=== PATIENT | female | born 1950 | race Caucasian/White ===

== ENCOUNTER → 2016-08-20 | Day surgery (SDC) | payer OTHER, MEDICARE ==
[~2016-08-20] VITALS: Ht 162.6 cm; Wt 86.2 kg
--- NOTE | 2016-08-20 14:25 | Operative Report ---
Operative/Inv Procedure Report Surgery Date: 08/20/16 Name of Procedure: Bronchoscopy. 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 The endobronchial anatomy was normal. There were no lesions or bronchial abnormalities. The patient's neck and chest were then prepped and draped in a sterile fashion. An incision was made above the sternal notch and carried down to pretracheal fascia. Dissection was done just anterior to the trachea into the soft tissue behind the sternal notch. The mediastinal adenopathy that been identified on CT scan was encountered directly. There was first a cervical lymph node area above the sternum that was removed and sent for permanent histology. Further dissection below the strap muscles allowed complete excision of the superior mediastinal lymph node that was found at the aortic arch just adjacent to the brachiocephalic artery. It was removed in its entirety and sent to pathology. Intraoperative frozen section disclosed some form of lymphoproliferative process and further pathology is pending. Hemostasis was achieved with electrocautery. The wound was closed anatomically with running Vicryl suture followed by running Vicryl subcuticular suture. The wound was dressed with dry sterile dressing. The patient tolerated the procedure well and was brought to recovery room awake and extubated in stable condition. CC: MARIN MURO,ADRIANNE Rasmussen; BHAVNA MURO,JACKY; Magdi PEARL MD
--- NOTE | 2016-08-20 15:13 | RADIOLOGY REPORT ---
EXAMINATION: CHEST 1 VIEW CLINICAL INFORMATION: Status post mediastinoscopy and bronchoscopy. COMPARISON: 08/17/2016. TECHNIQUE: An AP view of the chest is provided. FINDINGS: The cardiac silhouette is not enlarged. Again identified is a right hilar mass. There are no pleural effusions. There is the suggestion of right-sided mediastinal gas. There is minimal atelectasis within the right lung base. The osseous structures are unremarkable. IMPRESSION: Persistent right hilar mass. Likely pneumomediastinum. No discernible pneumothorax. No evidence for shift of midline structures. Mild right lung base atelectasis.
== END ==
LOC: STS 01:07
DX: C81.12 Nodular sclerosis Hodgkin lymphoma, intrathoracic lymph nodes (principal); C81.11 Nodular sclerosis Hodgkin lymphoma, lymph nodes of head, face, and neck; J44.9 Chronic obstructive pulmonary disease, unspecified; Z87.891 Personal history of nicotine dependence; E11.9 Type 2 diabetes mellitus without complications; Z79.84 Long term (current) use of oral hypoglycemic drugs; E78.2 Mixed hyperlipidemia
CPT/HCPCS: 88184; 88305; 88331; C9399; J0131; J2250